=== PATIENT | male | born 1975 ===

== ENCOUNTER 2024-09-07 05:20 | Day surgery (SDC) | payer OTHER ==
[2024-08-31 11:44] LABS: URINE APPEARANCE Clear; URINE BILIRRUBIN Negative (NEGATIVE); URINE BLOOD Negative; URINE COLOR Yellow; URINE GLUCOSE Negative (NEGATIVE); URINE KETONE Negative (NEGATIVE); URINE LEUKOCYTE Negative; URINE NITRATE Negative; URINE PROTEIN Negative (NEGATIVE); URINE UROBILINOGEN 0.2 E.U./dl
[2024-08-31 11:47] LABS: BASO % 0.9 % (0.1-1.2); EOS # 1.09 (0.04-0.54); EOS % 12.2 % (0.7-7.0); LYMPH # 2.09 (1.18-3.74); LYMPH % 23.4 % (19.3-53.1); MEAN PLATELET VOLUME 10.90 fl (9.4-12.4); MONO # 0.65 (0.24-0.82); MONO % 7.3 % (4.7-12.5); NEUT # 5.00 (1.56-6.13); NEUT % 55.9 % (34.0-71.1); RED CELL DISTRIBUTION WIDTH 14.6 % (11.6-14.4)
[2024-08-31 11:58] LABS: URINE BACTERIA 1.2 uL (0.0-1933); URINE CAST 0.58 uL (0.0-1.40); URINE EPITHELIAL CELLS 1.3 uL (0.0-38.8); URINE RBC 1.6 uL (0.0-20.8); URINE WBC 0.9 uL (0.0-23.2)
[2024-08-31 12:20] VITALS: BP 120/68
[2024-08-31 12:33] LABS: INR 1.04
[2024-08-31 12:40] LABS: ALT/SGPT 19.0 U/L (12-78); AST/SGOT 12.0 U/L (15-37); BILIRUBIN TOTAL 0.29 mg/dL (0.3-1.2); BUN CREA RATIO 19.0 (7.0-25.0); CREATININE SERUM 1.1 mg/dL (0.70-1.30); GFR 70.85; GLOBULINA 3.8 G/DL (2.4-3.5); GLUCOSE FASTING 82.0 mg/dL (65-100); LDH 144.0 U/L (87-241); OSMOLALITY SERUM 283.0 MOSM/KG (275-295)
[~2024-09-07] VITALS: Ht 177.8 cm; Wt 102.1 kg
[~2024-09-07 05:20] MED LIST: WELLBUTRIN XL300 MG PO; ZESTRIL10 M1 PO
[2024-09-07] MEDS ORDERED: CEFAZOLIN SODIUM 1,000 MG VIAL IV SCH (08:30)
[2024-09-07] MEDS ORDERED: MORPHINE SULFATE 4 MG/ML VIAL IV ONE (09:05)
== END 2024-09-07 10:20 | disposition home or self-care (01) ==
LOC: CIR.AMB 05:20
PROVIDERS: ATTEND Orthopaedic Surgery Hand Surgery
DX: G56.01 Carpal tunnel syndrome, right upper limb (principal); Z91.013 Allergy to seafood